=== PATIENT | female | born 1985 ===

== ENCOUNTER 2018-06-15 15:48 | Inpatient (IN) | payer OTHER ==
[2018-06-15] MEDS ORDERED: Sodium Chloride 0.9% 2,000 ML IV STA (16:08)
--- NOTE | 2018-06-15 16:22 | ED PDOC ---
Arrival/HPI - General Chief Complaint: Substance Abuse Time Seen by Provider: 06/15/18 15:49 Historian: Family EM Caveat: Other (limited due to overdose) - Critical Care Critical Care Minutes: 30 minutes - History of Present Illness Narrative History of Present Illness (Text): 06/15/18 16:23 32 year old female with no significant past medical history presents to the emergency department accompanied by her family s/p taking unknown quantity of Benadryl 50mg, earlier today. Patient states she wants to sleep. Family states patient had a fight with her mom at noon today in regards to moving back to the [place], she then texted her mom shortly after saying "sorry." When the family went to the house to check on the patient at 4pm they found her tired and after admitting to taking the pills brought her to the ED. Denies prior suicide attempt. HPI and ROS are limited due to the patients overdose and unresponsive condition. 06/15/18 17:12 Time/Duration: 4-6 hours Symptom Course: Unchanged Activities at Onset: Emotional Upset Context: Home Past Medical History - Provider Review Nursing Documentation Reviewed: Yes - Infectious Disease Hx of Infectious Diseases: None - Reproductive Menopause: No - Cardiac Hx Cardiac Disorders: No - Pulmonary Hx Respiratory Disorders: No - Endocrine/Metabolic Hx Endocrine Disorders: No - Psychiatric Hx Substance Use: No - Anesthesia Hx Anesthesia: No Family/Social History - Physician Review Nursing Documentation Reviewed: Yes Family/Social History: Unknown Family HX Smoking Status: Unknown If Ever Smoked Hx Alcohol Use: Yes Frequency of alcohol use: Socially Hx Substance Use: No Allergies/Home Meds Allergies/Adverse Reactions: Allergies No Known Allergies Allergy (Unverified 06/15/18 16:06) Review of Systems - Review of Systems Systems not reviewed;Unavailable: Altered Mental Status (limitied due to patient's lethargy) Physical Exam - Physical Exam Physical Exam Limitations: Altered Mental Status Vital Signs Reviewed: Yes Temperature: Afebrile Blood Pressure: Hypertensive Pulse: Tachycardic Respiratory Rate: Normal Appearance: Positive for: Well-Appearing Pain Distress: None Mental Status: Positive for: Lethargic Finger Stick Blood Glucose: 70 - Systems Exam Head: Present: Atraumatic, Normocephalic Pupils: Present: Other (midpoint pupils) Extroacular Muscles: Present: EOMI Conjunctiva: Present: Normal Mouth: Present: Moist Mucous Membranes Neck: Present: Normal Range of Motion Respiratory/Chest: Present: Clear to Auscultation, Good Air Exchange. No: Respiratory Distress, Accessory Muscle Use Cardiovascular: Present: Normal S1, S2, Tachycardic. No: Murmurs Abdomen: Present: Scars (well healing surgicial incisions). No: Tenderness, Distention, Peritoneal Signs Breast/Axillary: Present: Other (moist) Back: Present: Normal Inspection Upper Extremity: Present: Normal Inspection. No: Cyanosis, Edema Lower Extremity: Present: Normal Inspection. No: Edema Neurological: Present: Motor Func Grossly Intact (moving all extremities) Skin: Present: Normal Color, Diaphoretic (moist under armpits ). No: Rashes Psychiatric: Present: Lethargic Medical Decision Making ED Course and Treatment: 06/15/18 16:05 Impression: 32 year old female who presents to the emergency department s/p taking unknown quantity of Benadryl 50mg between 12 and 4pm Plan: -- VBG -- Labs -- Chest X-ray -- IV fluids -- Urinalysis -- martinez due to concern for urinary retention -- Reassess and disposition Progress Notes: 06/15/18 16:10 Spoke to poison control who recommends IV hydration, monitoring for hyperthermia, agitation and seizures, with cooling and benzodiazepines as needed for anticholinergic syndrome. 06/15/18 16:45 EKG reviewed, shows: sinus tachycardia at 144BPM, with NC interval of 96, QRS interbal of 92, and QTC interval of 554. 06/15/18 17:14 Martinez shows retaining 900cc urine. Labs reviewed. Heart rate improving. Mental status improving. Patient continues to need medical monitoring before psych evaluation. 06/15/18 17:49 Chest X-ray reviewed, shows: IMPRESSION: No acute findings. 06/15/18 17:[address] Ferrera who is requesting ICU evaluation. 06/15/18 18:20 Poison control recommends 1gm Mag 06/15/18 18:21 ICU accepted patient for alkalization of urine. - Critical Care Critical Care Minutes: 30 minutes Critical Care Time: Excluding Proc Time - Lab Interpretations I have reviewed the lab results: Yes - RAD Interpretation Radiology Orders: 06/15/18 16:07 CHEST PORTABLE [RAD] Stat Traffic Court Magistrate: Radiologist - EKG Interpretation Interpreted by ED Physician: Yes Type: 12 lead EKG - Medication Orders Current Medication Orders: Sodium Chloride (Sodium Chloride 0.9%) 2,000 mls @ 999 mls/hr IV .Q2H1M STA Stop: 06/15/18 18:08 - Scribe Statement The provider has reviewed the documentation as recorded by the Scribe Sanaz Mcwilliams Provider Scribe Attestation: All medical record entries made by the Scribe were at my direction and personally dictated by me. I have reviewed the chart and agree that the record accurately reflects my personal performance of the history, physical exam, medical decision making, and the department course for this patient. I have also personally directed, reviewed, and agree with the discharge instructions and disposition. Disposition/Present on Arrival - Present on Arrival Any Indicators Present on Arrival: No History of DVT/PE: No History of Uncontrolled Diabetes: No Urinary Catheter: No History of Decub. Ulcer: No History Surgical Site Infection Following: None - Disposition Have Diagnosis and Disposition been Completed?: Yes Diagnosis: Drug overdose, intentional, Anticholinergic syndrome Disposition: HOSPITALIZED Disposition Time: 04:19 Patient Plan: Admission, ICU Patient Problems: Current Active Problems Problem Status Onset Drug overdose, intentional Acute Anticholinergic syndrome Acute Condition: CRITICAL
[2018-06-15 16:25] LABS: BASO # 0.02 K/mm3 (0.0-2.0); BASO % 0.3 % (0.0-3.0); EOS # 0.1 (0.0-0.7); EOS % 0.9 % (1.5-5.0); GRAN # 4.66 (1.4-6.5); GRAN % 58.4 % (50.0-68.0); HEMOGLOBIN 13.8 g/dL (12.0-16.0); LYMPH # 2.7 (1.2-3.4); LYMPH % 34.2 % (22.0-35.0); MEAN CELL VOLUME 78.8 fl (80.0-105.0); MEAN CORPUSCULAR HEMOGLOBIN 27.8 pg (25.0-35.0); MEAN CORPUSCULAR HGB CONC 35.3 g/dl (31.0-37.0); MEAN PLATELET VOLUME 10.8 fl (7.0-11.0); MONO # 0.5 (0.1-0.6); MONO % 6.2 % (1.0-6.0); RBC 4.96 10^6/uL (3.5-6.1); RED CELL DISTRIBUTION WIDTH 15.4 % (11.5-14.5)
[2018-06-15 16:33] LABS: ALB/GLOB RATIO 1.3 (1.1-1.8); ALBUMIN 5.1 g/dL (3.0-4.8); ALT/SGPT 35 U/L (7-56); AST/SGOT 40 U/L (14-36); BLOOD UREA NITROGEN 12 mg/dL (7-21); CALCIUM 10.1 mg/dL (8.4-10.5); GFR NON-AFRICAN AMERICAN > 60
[2018-06-15 16:36] LABS: PH,URINE 6.5 (4.7-8.0); URINE APPEARANCE CLEAR (CLEAR); URINE BILIRUBIN NEGATIVE (NEGATIVE); URINE BLOOD NEGATIVE (NEGATIVE); URINE COLOR LIGHT YELLOW (YELLOW); URINE GLUCOSE (UA) NEGATIVE (NEGATIVE); URINE LEUKOCYTE ESTERASE NEGATIVE Leu/uL (NEGATIVE); URINE PROTEIN NEGATIVE mg/dL (<30 mg/dL); URINE UROBILINOGEN 0.2 E.U./dL (<1 E.U./dL)
[2018-06-15 16:41] LABS: HCG,QUALITATIVE URINE NEGATIVE (NEGATIVE)
[2018-06-15 16:52] LABS: ACETAMINOPHEN < 10.0 ug/ml (10.0-20.0); SALICYLATE < 1 mg/dL (2.0-20.0)
[2018-06-15 17:04] LABS: BARBITURATES, UR NEGATIVE (NEGATIVE); BENZODIAZEPINES, UR NEGATIVE (NEGATIVE); OPIATES, UR NEGATIVE (NEGATIVE); PHENCYCLIDINE, UR NEGATIVE (NEGATIVE)
[2018-06-15 17:20] LABS: VENOUS BLOOD GAS BASE EXCESS -4.5 mmol/L (0.0-2.0); VENOUS BLOOD GAS PO2 79 mm/Hg (30-55); VENOUS BLOOD PH 7.36 (7.32-7.43)
--- NOTE | 2018-06-15 17:46 | RAD ---
Date of service: 06/15/2018 HISTORY: overdose COMPARISON: No prior. FINDINGS: LUNGS: The lungs are well inflated and clear. PLEURA: No pleural effusions or pneumothorax. CARDIOVASCULAR: The heart is normal in size. No aortic atherosclerotic calcification present. OSSEOUS STRUCTURES: Within normal limits for the patient's age. VISUALIZED UPPER ABDOMEN: Normal. OTHER FINDINGS: None. IMPRESSION: No acute findings.
[2018-06-15] MEDS ORDERED: Magnesium Sulfate 1 gm in D5W 1 GM/100 ML BAG IVPB ONE (18:20)
--- NOTE | 2018-06-15 18:25 | CP.PCM.CON ---
History of Present Illness - History of Present Illness History of Present Illness: MICU CONSULT NOTE HPI Patient is 32yo female without significant PMhx presents to the ER after taking unknown amount of Benadryl 50mg tablets for "sleep" today, cannot quantify. Patient denies any major complaints, is AAOx3, NAD, providing non descriptive history. Denies SI, HI. No other constitutional symptoms. Pts family found her tired and sluggish. PMhx None PSHx NONE Meds Benadryl Allergies NKDA FHx NC Social Denies smoking, etoh, drug use; unemployed Review of Systems - Review of Systems Review of Systems: as per HPI Past Patient History - Infectious Disease Hx of Infectious Diseases: None - Past Social History Smoking Status: Unknown If Ever Smoked - CARDIAC Hx Cardiac Disorders: No - PULMONARY Hx Respiratory Disorders: No - ENDOCRINE/METABOLIC Hx Endocrine Disorders: No - PSYCHIATRIC Hx Substance Use: No - ANESTHESIA Hx Anesthesia: No Meds Allergies/Adverse Reactions: Allergies Allergy/AdvReac Type Severity Reaction Status Date / Time No Known Allergies Allergy Unverified 06/15/18 16:06 - Medications Medications: Current Medications Potassium Chloride (Potassium Chloride 20 Meq/100 Ml) 20 meq in 100 mls @ 50 mls/hr IVPB Q2H SONAL Stop: 06/15/18 20:44 Last Admin: 06/15/18 17:10 Dose: 50 mls/hr Physical Exam - Constitutional Appears: Non-toxic, No Acute Distress - Head Exam Head Exam: NORMAL INSPECTION - Eye Exam Eye Exam: Normal appearance - ENT Exam ENT Exam: Mucous Membranes Moist - Neck Exam Neck exam: Positive for: Full Rom - Respiratory Exam Respiratory Exam: Clear to Auscultation Bilateral, NORMAL BREATHING PATTERN - Cardiovascular Exam Cardiovascular Exam: REGULAR RHYTHM, +S1, +S2 - GI/Abdominal Exam GI & Abdominal Exam: Normal Bowel Sounds, Soft - Neurological Exam Neurological exam: Alert, Oriented x3 - Psychiatric Exam Psychiatric exam: Depressed - Skin Skin Exam: Normal Color, Warm Results - Vital Signs Recent Vital Signs: Last Vital Signs Temp 97.7 F 06/15/18 17:53 Pulse 104 H 06/15/18 17:53 Resp 20 06/15/18 17:53 BP 171/102 H 06/15/18 17:53 Pulse Ox 99 06/15/18 17:53 - Labs Result Diagrams: 06/15/18 16:05 06/15/18 16:05 Labs: Laboratory Results - last 24 hr 06/15/18 06/15/18 06/15/18 16:05 16:05 16:05 WBC 8.0 RBC 4.96 Hgb 13.8 Hct 39.1 MCV 78.8 L MCH 27.8 MCHC 35.3 RDW 15.4 H Plt Count 265 MPV 10.8 Gran % 58.4 Lymph % (Auto) 34.2 [place] % (Auto) 6.2 H Eos % (Auto) 0.9 L Baso % (Auto) 0.3 Gran # 4.66 Lymph # (Auto) 2.7 [place] # (Auto) 0.5 Eos # (Auto) 0.1 Baso # (Auto) 0.02 pO2 VBG pH VBG pCO2 VBG HCO3 VBG Total CO2 VBG O2 Sat (Calc) VBG Base Excess VBG Potassium Glucose Lactate FiO2 Sodium 141 Potassium 3.4 L Chloride 107 Carbon Dioxide 22 Anion Gap 16 BUN 12 Creatinine 0.7 Est GFR ( Amer) > 60 Est GFR (Non-Af Amer) > 60 Random Glucose 79 Calcium 10.1 Phosphorus 2.2 L Magnesium 2.1 Total Bilirubin 0.5 AST 40 H ALT 35 Alkaline Phosphatase 61 Total Creatine Kinase 70 Total Protein 9.0 H Albumin 5.1 H Globulin 3.8 Albumin/Globulin Ratio 1.3 Venous Blood Potassium Urine Color Urine Appearance Urine pH Ur Specific [place] Urine Protein Urine Glucose (UA) Urine Ketones Urine Blood Urine Nitrate Urine Bilirubin Urine Urobilinogen Ur Leukocyte Esterase Urine HCG, Qual Salicylates < 1 L Urine Opiates Screen Urine Methadone Screen Acetaminophen < 10.0 L Ur Barbiturates Screen Ur Phencyclidine Scrn Ur Amphetamines Screen U Benzodiazepines Scrn U Oth Cocaine Metabols U Cannabinoids Screen Alcohol, Quantitative 06/15/18 06/15/18 06/15/18 16:05 16:29 16:29 WBC RBC Hgb Hct MCV MCH MCHC RDW Plt Count MPV Gran % Lymph % (Auto) [place] % (Auto) Eos % (Auto) Baso % (Auto) Gran # Lymph # (Auto) [place] # (Auto) Eos # (Auto) Baso # (Auto) pO2 VBG pH VBG pCO2 VBG HCO3 VBG Total CO2 VBG O2 Sat (Calc) VBG Base Excess VBG Potassium Glucose Lactate FiO2 Sodium Potassium Chloride Carbon Dioxide Anion Gap BUN Creatinine Est GFR ( Amer) Est GFR (Non-Af Amer) Random Glucose Calcium Phosphorus Magnesium Total Bilirubin AST ALT Alkaline Phosphatase Total Creatine Kinase Total Protein Albumin Globulin Albumin/Globulin Ratio Venous Blood Potassium Urine Color Light yellow Urine Appearance Clear Urine pH 6.5 Ur Specific [place] <= 1.005 Urine Protein Negative Urine Glucose (UA) Negative Urine Ketones Negative Urine Blood Negative Urine Nitrate Negative Urine Bilirubin Negative Urine Urobilinogen 0.2 Ur Leukocyte Esterase Negative Urine HCG, Qual Negative Salicylates Urine Opiates Screen Negative Urine Methadone Screen Negative Acetaminophen Ur Barbiturates Screen Negative Ur Phencyclidine Scrn Negative Ur Amphetamines Screen Negative U Benzodiazepines Scrn Negative U Oth Cocaine Metabols Negative U Cannabinoids Screen Negative Alcohol, Quantitative < 10 06/15/18 17:10 WBC RBC Hgb Hct MCV MCH MCHC RDW Plt Count MPV Gran % Lymph % (Auto) [place] % (Auto) Eos % (Auto) Baso % (Auto) Gran # Lymph # (Auto) [place] # (Auto) Eos # (Auto) Baso # (Auto) pO2 79 H VBG pH 7.36 VBG pCO2 36.0 L VBG HCO3 20.3 L VBG Total CO2 21.4 L VBG O2 Sat (Calc) 97.0 H VBG Base Excess -4.5 L VBG Potassium 3.4 L Glucose 68 Lactate 1.7 FiO2 21.0 Sodium 142.0 Potassium Chloride 112.0 H Carbon Dioxide Anion Gap BUN Creatinine Est GFR ( Amer) Est GFR (Non-Af Amer) Random Glucose Calcium Phosphorus Magnesium Total Bilirubin AST ALT Alkaline Phosphatase Total Creatine Kinase Total Protein Albumin Globulin Albumin/Globulin Ratio Venous Blood Potassium 3.4 L Urine Color Urine Appearance Urine pH Ur Specific [place] Urine Protein Urine Glucose (UA) Urine Ketones Urine Blood Urine Nitrate Urine Bilirubin Urine Urobilinogen Ur Leukocyte Esterase Urine HCG, Qual Salicylates Urine Opiates Screen Urine Methadone Screen Acetaminophen Ur Barbiturates Screen Ur Phencyclidine Scrn Ur Amphetamines Screen U Benzodiazepines Scrn U Oth Cocaine Metabols U Cannabinoids Screen Alcohol, Quantitative - EKG Data EKG shows normal: Sinus rhythm (NSR), [place] (nml), Intervals (QTc Prolonged) - Imaging and Cardiology Chest x-ray Status: Image reviewed by me, Report reviewed by me Assessment & Plan - Assessment and Plan (Free Text) Assessment: 32yo female presents Benadryl overdose Overdose, Benadryl rule out SI, Depression - currently afebrile, BP stable, AAOx3, NAD, - labs imaging, chart reviewed - EKG, NSR, nml axis, Qtc>500 Recommend: - supp o2 as needed - NO ID issues - IVF, would alkalinize the urine, 1/2NS with 75meq NaBicarb - monitor Qtc - repeat EKG - follow up with poison control - ECHO - give 1gram of Mag - replete K - GI ppx - DVT ppx - Obtain psych consult - 1:1 observation - Admit to MICU for monitoring
[2018-06-15] MEDS ORDERED: Pantoprazole 20 mg EC Tab PO ONE (19:02)
--- NOTE | 2018-06-15 19:46 | CARD ---
APPROVED REPORT Date of service: 06/15/2018 EKG Measurement Heart [id number] 96P [id number] <Conclusion> Poor data quality, interpretation may be adversely affected Sinus tachycardia with short [place] Nonspecific ST abnormality Abnormal ECG
--- NOTE | 2018-06-15 20:47 | CP.PCM.HP ---
History of Present Illness - History of Present Illness History of Present Illness: Sai Adkins PGY1 History and Physical for Dr Boston Corrales Pt is a 32 yo female with a PMH of asthma who presents to the ED after taking an unknown quantity of Benadryl 50mg. Pt states this was not a suicide attempt, but that she just wanted to sleep. Pt reportedly had a fight with her mother earlier today about possibly moving back to the [place]. Pt was later found by family when they went to the house to check on the pt around 1600. Pt was found to be tired and was brought to the ED. Pt appears anxious during interview, pt is slow to answer questions, but does answer them appropriately. Pt has no other complaints at this time. A 12 point ROS was obtained and added to the HPI where appropriate. PMH: asthma PSH: laminectomy FH: Non contributory SH: Tobacco denies, Alcohol occasionally, Illicit drug use denies; unemployed Home meds: Benadryl Allergies: Denies Present on Admission - Present on Admission Any Indicators Present on Admission: No Review of Systems - Review of Systems Review of Systems: a 12 point ROS was obtained and added to the HPI where appropriate Past Patient History - Infectious Disease Hx of Infectious Diseases: None - Past Social History Smoking Status: Unknown If Ever Smoked - CARDIAC Hx Cardiac Disorders: No - PULMONARY Hx Respiratory Disorders: No - ENDOCRINE/METABOLIC Hx Endocrine Disorders: No - PSYCHIATRIC Hx Substance Use: No - ANESTHESIA Hx Anesthesia: No Meds Allergies/Adverse Reactions: Allergies Allergy/AdvReac Type Severity Reaction Status Date / Time No Known Allergies Allergy Unverified 06/15/18 16:06 Physical Exam - Head Exam Head Exam: ATRAUMATIC, NORMAL INSPECTION, NORMOCEPHALIC - Eye Exam Eye Exam: EOMI, Nystagmus Additional comments: horizontal nystagmus noted on exam - ENT Exam ENT Exam: Mucous Membranes Moist - Neck Exam Neck exam: Positive for: Full Rom - Respiratory Exam Respiratory Exam: Clear to Auscultation Bilateral, NORMAL BREATHING PATTERN. absent: Accessory Muscle Use, Wheezes - Cardiovascular Exam Cardiovascular Exam: Tachycardia, +S1, +S2. absent: Diastolic murmur, Systolic Murmur - GI/Abdominal Exam GI & Abdominal Exam: Normal Bowel Sounds, Soft. absent: Tenderness - Extremities Exam Extremities exam: Positive for: pedal edema, pedal pulses present. Negative for: calf tenderness, tenderness - Neurological Exam Neurological exam: Alert, CN II-XII Intact, Oriented x3 - Psychiatric Exam Psychiatric exam: Anxious, Normal Affect, Normal Mood - Skin Skin Exam: Dry, Intact, Warm Results - Vital Signs Recent Vital Signs: Last Vital Signs Temp 97.7 F 06/15/18 17:53 Pulse 124 H 06/15/18 19:13 Resp 20 06/15/18 19:13 BP 142/93 H 06/15/18 19:13 Pulse Ox 99 06/15/18 19:13 - Labs Result Diagrams: 06/15/18 16:05 06/15/18 16:05 Labs: Laboratory Results - last 24 hr 06/15/18 06/15/18 06/15/18 16:05 16:05 16:05 WBC 8.0 RBC 4.96 Hgb 13.8 Hct 39.1 MCV 78.8 L MCH 27.8 MCHC 35.3 RDW 15.4 H Plt Count 265 MPV 10.8 Gran % 58.4 Lymph % (Auto) 34.2 [place] % (Auto) 6.2 H Eos % (Auto) 0.9 L Baso % (Auto) 0.3 Gran # 4.66 Lymph # (Auto) 2.7 [place] # (Auto) 0.5 Eos # (Auto) 0.1 Baso # (Auto) 0.02 pO2 VBG pH VBG pCO2 VBG HCO3 VBG Total CO2 VBG O2 Sat (Calc) VBG Base Excess VBG Potassium Glucose Lactate FiO2 Sodium 141 Potassium 3.4 L Chloride 107 Carbon Dioxide 22 Anion Gap 16 BUN 12 Creatinine 0.7 Est GFR ( Amer) > 60 Est GFR (Non-Af Amer) > 60 Random Glucose 79 Calcium 10.1 Phosphorus 2.2 L Magnesium 2.1 Total Bilirubin 0.5 AST 40 H ALT 35 Alkaline Phosphatase 61 Total Creatine Kinase 70 Total Protein 9.0 H Albumin 5.1 H Globulin 3.8 Albumin/Globulin Ratio 1.3 Venous Blood Potassium Urine Color Urine Appearance Urine pH Ur Specific [place] Urine Protein Urine Glucose (UA) Urine Ketones Urine Blood Urine Nitrate Urine Bilirubin Urine Urobilinogen Ur Leukocyte Esterase Urine HCG, Qual Salicylates < 1 L Urine Opiates Screen Urine Methadone Screen Acetaminophen < 10.0 L Ur Barbiturates Screen Ur Phencyclidine Scrn Ur Amphetamines Screen U Benzodiazepines Scrn U Oth Cocaine Metabols U Cannabinoids Screen Alcohol, Quantitative 11/06/18 11/06/18 11/06/18 16:05 16:29 16:29 WBC RBC Hgb Hct MCV MCH MCHC RDW Plt Count MPV Gran % Lymph % (Auto) [place] % (Auto) Eos % (Auto) Baso % (Auto) Gran # Lymph # (Auto) [place] # (Auto) Eos # (Auto) Baso # (Auto) pO2 VBG pH VBG pCO2 VBG HCO3 VBG Total CO2 VBG O2 Sat (Calc) VBG Base Excess VBG Potassium Glucose Lactate FiO2 Sodium Potassium Chloride Carbon Dioxide Anion Gap BUN Creatinine Est GFR ( Amer) Est GFR (Non-Af Amer) Random Glucose Calcium Phosphorus Magnesium Total Bilirubin AST ALT Alkaline Phosphatase Total Creatine Kinase Total Protein Albumin Globulin Albumin/Globulin Ratio Venous Blood Potassium Urine Color Light yellow Urine Appearance Clear Urine pH 6.5 Ur Specific [place] <= 1.005 Urine Protein Negative Urine Glucose (UA) Negative Urine Ketones Negative Urine Blood Negative Urine Nitrate Negative Urine Bilirubin Negative Urine Urobilinogen 0.2 Ur Leukocyte Esterase Negative Urine HCG, Qual Negative Salicylates Urine Opiates Screen Negative Urine Methadone Screen Negative Acetaminophen Ur Barbiturates Screen Negative Ur Phencyclidine Scrn Negative Ur Amphetamines Screen Negative U Benzodiazepines Scrn Negative U Oth Cocaine Metabols Negative U Cannabinoids Screen Negative Alcohol, Quantitative < 10 06/15/18 17:10 WBC RBC Hgb Hct MCV MCH MCHC RDW Plt Count MPV Gran % Lymph % (Auto) [place] % (Auto) Eos % (Auto) Baso % (Auto) Gran # Lymph # (Auto) [place] # (Auto) Eos # (Auto) Baso # (Auto) pO2 79 H VBG pH 7.36 VBG pCO2 36.0 L VBG HCO3 20.3 L VBG Total CO2 21.4 L VBG O2 Sat (Calc) 97.0 H VBG Base Excess -4.5 L VBG Potassium 3.4 L Glucose 68 Lactate 1.7 FiO2 21.0 Sodium 142.0 Potassium Chloride 112.0 H Carbon Dioxide Anion Gap BUN Creatinine Est GFR ( Amer) Est GFR (Non-Af Amer) Random Glucose Calcium Phosphorus Magnesium Total Bilirubin AST ALT Alkaline Phosphatase Total Creatine Kinase Total Protein Albumin Globulin Albumin/Globulin Ratio Venous Blood Potassium 3.4 L Urine Color Urine Appearance Urine pH Ur Specific [place] Urine Protein Urine Glucose (UA) Urine Ketones Urine Blood Urine Nitrate Urine Bilirubin Urine Urobilinogen Ur Leukocyte Esterase Urine HCG, Qual Salicylates Urine Opiates Screen Urine Methadone Screen Acetaminophen Ur Barbiturates Screen Ur Phencyclidine Scrn Ur Amphetamines Screen U Benzodiazepines Scrn U Oth Cocaine Metabols U Cannabinoids Screen Alcohol, Quantitative Assessment & Plan - Assessment and Plan (Free Text) Assessment: Pt is a 32 yo female with a PMH of asthma who presents to the ED after taking an unknown quantity of Benadryl 50mg Plan: Benadryl Overdose - pt tachycardic - EKG shows QTc 554 - pt given sodium bicarb - pt given Mg - continue to monitor pt in the ICU - Toxicology negative - UA negative - CXR shows no acute findings - Psyc consulted - follow up ECHO Hypokalemia - K 3.4 - replete PRN Hypophosphatemia - Phos 2.2 - replete PRN Asthma - no wheezing at this time - will give duonebs if pt requires in the future Ppx - SCD - protonix Pt seen, examined, assessment and plan discussed with Dr Boston Adkins PGY1 - Date & Time Date: 06/15/18 Time: 20:50
[2018-06-15 23:42] VITALS: BMI 27.7
[2018-06-16 07:20] LABS: BASO # 0.02 K/mm3 (0.0-2.0); BASO % 0.2 % (0.0-3.0); EOS # 0.1 (0.0-0.7); EOS % 0.8 % (1.5-5.0); GRAN # 4.89 (1.4-6.5); GRAN % 55.5 % (50.0-68.0); HEMOGLOBIN 13.2 g/dL (12.0-16.0); LYMPH # 3.2 (1.2-3.4); MEAN CELL VOLUME 78.3 fl (80.0-105.0); MEAN CORPUSCULAR HEMOGLOBIN 27.5 pg (25.0-35.0); MEAN CORPUSCULAR HGB CONC 35.1 g/dl (31.0-37.0); MEAN PLATELET VOLUME 10.9 fl (7.0-11.0); MONO # 0.7 (0.1-0.6); MONO % 7.5 % (1.0-6.0); RBC 4.8 10^6/uL (3.5-6.1); RED CELL DISTRIBUTION WIDTH 15.4 % (11.5-14.5); WHITE BLOOD COUNT 8.8 10^3/uL (4.5-11.0)
[2018-06-16 07:31] LABS: ALB/GLOB RATIO 1.3 (1.1-1.8); ALBUMIN 4.4 g/dL (3.0-4.8); ALT/SGPT 36 U/L (7-56); AST/SGOT 29 U/L (14-36); BLOOD UREA NITROGEN 7 mg/dL (7-21); CALCIUM 9.2 mg/dL (8.4-10.5); GFR NON-AFRICAN AMERICAN > 60
--- NOTE | 2018-06-16 10:08 | CARD ---
APPROVED REPORT Date of service: 06/16/2018 EKG Measurement Heart [id number] <Conclusion> Sinus tachycardia Otherwise normal ECG
--- NOTE | 2018-06-16 12:30 | CP.CCUPN ---
<Timur Carpenter - Last Filed: 06/16/18 13:07> CCU Subjective - Physician Review Subjective (Free Text): CRITICAL CARE PROGRESS NOTE FOR DR. NEIDA Carpenter PGY-1 Pt seen and examined at bedside this am. She is present with mother at bedside. Pt reports that she has had insomnia for the past month. She had bought benadryl yesterday to try and help her sleep. She reports she also had an argument with her mother yesterday because her mother wanted to travel to [facility]. She had taken 50mg benadryl initially, followed by another 50mg two times about 20 minutes apart and subsequently 100mg. She had taken a total of 10 25mg tablets (250mg). She was brought in to ED by her mother, reports she hasn't noticed signs of suicidal or homicidal ideations. This am, she is currently at her baseline mental status. She is axo x 3. She denies any suicidal or homicidal ideations. 12 point ROS is negative. CCU Objective - Vital Signs / Intake & Output Intake and Output (Last 8hrs): Intake & Output 06/15/18 06/16/18 06/16/18 22:59 06:59 14:59 Intake Total 1000 Output Total 2500 Balance -1500 Weight 78.018 kg 78.018 kg Intake: IV 1000 Right Forearm 1000 Oral 0 Output: Urine 2500 Urethral ([place]) 2500 Other: # Bowel Movements 0 - Physical Exam Head: Positive for: Atraumatic, Normocephalic Pupils: Positive for: Other Extroacular Muscles: Positive for: EOMI Conjunctiva: Positive for: Normal Mouth: Positive for: Moist Mucous Membranes Neck: Positive for: Normal Range of Motion Respiratory/Chest: Positive for: Clear to Auscultation, Good Air Exchange. Negative for: Respiratory Distress, Accessory Muscle Use Cardiovascular: Positive for: Normal S1, S2, Tachycardic. Negative for: Murmurs Abdomen: Positive for: Scars (well healing surgicial incisions). Negative for: Tenderness, Distention, Peritoneal Signs Breast/Axillary: Positive for: Other (moist) Back: Positive for: Normal Inspection Upper Extremity: Positive for: Normal Inspection. Negative for: Cyanosis, Edema Lower Extremity: Positive for: Normal Inspection. Negative for: Edema Neurological: Positive for: Motor Func Grossly Intact (moving all extremities) Skin: Positive for: Normal Color, Diaphoretic (moist under armpits ). Negative for: Rashes Psychiatric: Positive for: Lethargic - Medications Active Medications: Active Medications Generic Name Dose Route Start Last Admin Trade Name Freq PRN Reason Stop Dose Admin Sodium Bicarbonate 75 meq/ 1,075 mls @ 40 mls/hr 06/16/18 04:45 06/16/18 07:15 Sodium Chloride IV 40 mls/hr .Q24H SONAL Administration - Patient Studies Lab Studies: Lab Studies 06/16/18 06/16/18 06/15/18 Range/Units 05:30 05:30 17:10 WBC 8.8 (4.5-11.0) 10^3/uL RBC 4.80 (3.5-6.1) 10^6/uL Hgb 13.2 (12.0-16.0) g/dL Hct 37.6 (36.0-48.0) % MCV 78.3 L (80.0-105.0) fl MCH 27.5 (25.0-35.0) pg MCHC 35.1 (31.0-37.0) g/dl RDW 15.4 H (11.5-14.5) % Plt Count 250 (120.0-450.0) 10^3/uL MPV 10.9 (7.0-11.0) fl Gran % 55.5 (50.0-68.0) % Lymph % (Auto) 36.0 H (22.0-35.0) % [place] % (Auto) 7.5 H (1.0-6.0) % Eos % (Auto) 0.8 L (1.5-5.0) % Baso % (Auto) 0.2 (0.0-3.0) % Gran # 4.89 (1.4-6.5) Lymph # (Auto) 3.2 (1.2-3.4) [place] # (Auto) 0.7 H (0.1-0.6) Eos # (Auto) 0.1 (0.0-0.7) Baso # (Auto) 0.02 (0.0-2.0) K/mm3 pO2 79 H (30-55) mm/Hg VBG pH 7.36 (7.32-7.43) VBG pCO2 36.0 L (40-60) VBG HCO3 20.3 L (21-28) mmol/l VBG Total CO2 21.4 L (22-28) mmol.L VBG O2 Sat (Calc) 97.0 H (40-65) % VBG Base Excess -4.5 L (0.0-2.0) mmol/L VBG Potassium 3.4 L (3.6-5.2) mmol/L Glucose 68 (65-105) mg/dl Lactate 1.7 (0.7-2.1) mmol/L FiO2 21.0 % Sodium 140 142.0 (132-148) mmol/L Potassium 3.9 (3.6-5.0) mmol/L Chloride 107 112.0 H (98-107) mmol/L Carbon Dioxide 22 (21-33) mmol/L Anion Gap 15 (10-20) BUN 7 (7-21) mg/dL Creatinine 0.6 L (0.7-1.2) mg/dl Est GFR ( Amer) > 60 Est GFR (Non-Af Amer) > 60 POC Glucose (mg/dL) (65-110) mg/dL Random Glucose 77 (70-110) mg/dL Calcium 9.2 (8.4-10.5) mg/dL Phosphorus 3.5 (2.5-4.5) mg/dL Magnesium 2.3 H (1.7-2.2) mg/dL Total Bilirubin 0.6 (0.2-1.3) mg/dL AST 29 (14-36) U/L ALT 36 (7-56) U/L Alkaline Phosphatase 52 (38-126) U/L Total Creatine Kinase (35-230) U/L Total Protein 7.8 (5.8-8.3) g/dL Albumin 4.4 (3.0-4.8) g/dL Globulin 3.3 gm/dL Albumin/Globulin Ratio 1.3 (1.1-1.8) Venous Blood Potassium 3.4 L (3.6-5.2) mmol/L Urine Color (YELLOW) Urine Appearance (CLEAR) Urine pH (4.7-8.0) Ur Specific [place] (1.005-1.035) Urine Protein (<30 mg/dL) mg/dL Urine Glucose (UA) (NEGATIVE) mg/dL Urine Ketones (NEGATIVE) mg/dL Urine Blood (NEGATIVE) Urine Nitrate (NEGATIVE) Urine Bilirubin (NEGATIVE) Urine Urobilinogen (<1 E.U./dL) E.U./dL Ur Leukocyte Esterase (NEGATIVE) Haim/uL Urine HCG, Qual (NEGATIVE) Salicylates (2.0-20.0) mg/dL Urine Opiates Screen (NEGATIVE) Urine Methadone Screen (NEGATIVE) Acetaminophen (10.0-20.0) ug/ml Ur Barbiturates Screen (NEGATIVE) Ur Phencyclidine Scrn (NEGATIVE) Ur Amphetamines Screen (NEGATIVE) U Benzodiazepines Scrn (NEGATIVE) U Oth Cocaine Metabols (NEGATIVE) U Cannabinoids Screen (NEGATIVE) Alcohol, Quantitative (0-10) mg/dL 06/15/18 06/15/18 06/15/18 Range/Units 16:29 16:29 16:08 WBC (4.5-11.0) 10^3/uL RBC (3.5-6.1) 10^6/uL Hgb (12.0-16.0) g/dL Hct (36.0-48.0) % MCV (80.0-105.0) fl MCH (25.0-35.0) pg MCHC (31.0-37.0) g/dl RDW (11.5-14.5) % Plt Count (120.0-450.0) 10^3/uL MPV (7.0-11.0) fl Gran % (50.0-68.0) % Lymph % (Auto) (22.0-35.0) % [place] % (Auto) (1.0-6.0) % Eos % (Auto) (1.5-5.0) % Baso % (Auto) (0.0-3.0) % Gran # (1.4-6.5) Lymph # (Auto) (1.2-3.4) [place] # (Auto) (0.1-0.6) Eos # (Auto) (0.0-0.7) Baso # (Auto) (0.0-2.0) K/mm3 pO2 (30-55) mm/Hg VBG pH (7.32-7.43) VBG pCO2 (40-60) VBG HCO3 (21-28) mmol/l VBG Total CO2 (22-28) mmol.L VBG O2 Sat (Calc) (40-65) % VBG Base Excess (0.0-2.0) mmol/L VBG Potassium (3.6-5.2) mmol/L Glucose (65-105) mg/dl Lactate (0.7-2.1) mmol/L FiO2 % Sodium (132-148) mmol/L Potassium (3.6-5.0) mmol/L Chloride (98-107) mmol/L Carbon Dioxide (21-33) mmol/L Anion Gap (10-20) BUN (7-21) mg/dL Creatinine (0.7-1.2) mg/dl Est GFR ( Amer) Est GFR (Non-Af Amer) POC Glucose (mg/dL) 70 (65-110) mg/dL Random Glucose (70-110) mg/dL Calcium (8.4-10.5) mg/dL Phosphorus (2.5-4.5) mg/dL Magnesium (1.7-2.2) mg/dL Total Bilirubin (0.2-1.3) mg/dL AST (14-36) U/L ALT (7-56) U/L Alkaline Phosphatase (38-126) U/L Total Creatine Kinase (35-230) U/L Total Protein (5.8-8.3) g/dL Albumin (3.0-4.8) g/dL Globulin gm/dL Albumin/Globulin Ratio (1.1-1.8) Venous Blood Potassium (3.6-5.2) mmol/L Urine Color Light yellow (YELLOW) Urine Appearance Clear (CLEAR) Urine pH 6.5 (4.7-8.0) Ur Specific [place] <= 1.005 (1.005-1.035) Urine Protein Negative (<30 mg/dL) mg/dL Urine Glucose (UA) Negative (NEGATIVE) mg/dL Urine Ketones Negative (NEGATIVE) mg/dL Urine Blood Negative (NEGATIVE) Urine Nitrate Negative (NEGATIVE) Urine Bilirubin Negative (NEGATIVE) Urine Urobilinogen 0.2 (<1 E.U./dL) E.U./dL Ur Leukocyte Esterase Negative (NEGATIVE) Haim/uL Urine HCG, Qual Negative (NEGATIVE) Salicylates (2.0-20.0) mg/dL Urine Opiates Screen Negative (NEGATIVE) Urine Methadone Screen Negative (NEGATIVE) Acetaminophen (10.0-20.0) ug/ml Ur Barbiturates Screen Negative (NEGATIVE) Ur Phencyclidine Scrn Negative (NEGATIVE) Ur Amphetamines Screen Negative (NEGATIVE) U Benzodiazepines Scrn Negative (NEGATIVE) U Oth Cocaine Metabols Negative (NEGATIVE) U Cannabinoids Screen Negative (NEGATIVE) Alcohol, Quantitative (0-10) mg/dL 06/15/18 06/15/18 06/15/18 Range/Units 16:05 16:05 16:05 WBC (4.5-11.0) 10^3/uL RBC (3.5-6.1) 10^6/uL Hgb (12.0-16.0) g/dL Hct (36.0-48.0) % MCV (80.0-105.0) fl MCH (25.0-35.0) pg MCHC (31.0-37.0) g/dl RDW (11.5-14.5) % Plt Count (120.0-450.0) 10^3/uL MPV (7.0-11.0) fl Gran % (50.0-68.0) % Lymph % (Auto) (22.0-35.0) % [place] % (Auto) (1.0-6.0) % Eos % (Auto) (1.5-5.0) % Baso % (Auto) (0.0-3.0) % Gran # (1.4-6.5) Lymph # (Auto) (1.2-3.4) [place] # (Auto) (0.1-0.6) Eos # (Auto) (0.0-0.7) Baso # (Auto) (0.0-2.0) K/mm3 pO2 (30-55) mm/Hg VBG pH (7.32-7.43) VBG pCO2 (40-60) VBG HCO3 (21-28) mmol/l VBG Total CO2 (22-28) mmol.L VBG O2 Sat (Calc) (40-65) % VBG Base Excess (0.0-2.0) mmol/L VBG Potassium (3.6-5.2) mmol/L Glucose (65-105) mg/dl Lactate (0.7-2.1) mmol/L FiO2 % Sodium 141 (132-148) mmol/L Potassium 3.4 L (3.6-5.0) mmol/L Chloride 107 (98-107) mmol/L Carbon Dioxide 22 (21-33) mmol/L Anion Gap 16 (10-20) BUN 12 (7-21) mg/dL Creatinine 0.7 (0.7-1.2) mg/dl Est GFR ( Amer) > 60 Est GFR (Non-Af Amer) > 60 POC Glucose (mg/dL) (65-110) mg/dL Random Glucose 79 (70-110) mg/dL Calcium 10.1 (8.4-10.5) mg/dL Phosphorus 2.2 L (2.5-4.5) mg/dL Magnesium 2.1 (1.7-2.2) mg/dL Total Bilirubin 0.5 (0.2-1.3) mg/dL AST 40 H (14-36) U/L ALT 35 (7-56) U/L Alkaline Phosphatase 61 (38-126) U/L Total Creatine Kinase 70 (35-230) U/L Total Protein 9.0 H (5.8-8.3) g/dL Albumin 5.1 H (3.0-4.8) g/dL Globulin 3.8 gm/dL Albumin/Globulin Ratio 1.3 (1.1-1.8) Venous Blood Potassium (3.6-5.2) mmol/L Urine Color (YELLOW) Urine Appearance (CLEAR) Urine pH (4.7-8.0) Ur Specific [place] (1.005-1.035) Urine Protein (<30 mg/dL) mg/dL Urine Glucose (UA) (NEGATIVE) mg/dL Urine Ketones (NEGATIVE) mg/dL Urine Blood (NEGATIVE) Urine Nitrate (NEGATIVE) Urine Bilirubin (NEGATIVE) Urine Urobilinogen (<1 E.U./dL) E.U./dL Ur Leukocyte Esterase (NEGATIVE) Haim/uL Urine HCG, Qual (NEGATIVE) Salicylates < 1 L (2.0-20.0) mg/dL Urine Opiates Screen (NEGATIVE) Urine Methadone Screen (NEGATIVE) Acetaminophen < 10.0 L (10.0-20.0) ug/ml Ur Barbiturates Screen (NEGATIVE) Ur Phencyclidine Scrn (NEGATIVE) Ur Amphetamines Screen (NEGATIVE) U Benzodiazepines Scrn (NEGATIVE) U Oth Cocaine Metabols (NEGATIVE) U Cannabinoids Screen (NEGATIVE) Alcohol, Quantitative < 10 (0-10) mg/dL 06/15/18 Range/Units 16:05 WBC 8.0 (4.5-11.0) 10^3/uL RBC 4.96 (3.5-6.1) 10^6/uL Hgb 13.8 (12.0-16.0) g/dL Hct 39.1 (36.0-48.0) % MCV 78.8 L (80.0-105.0) fl MCH 27.8 (25.0-35.0) pg MCHC 35.3 (31.0-37.0) g/dl RDW 15.4 H (11.5-14.5) % Plt Count 265 (120.0-450.0) 10^3/uL MPV 10.8 (7.0-11.0) fl Gran % 58.4 (50.0-68.0) % Lymph % (Auto) 34.2 (22.0-35.0) % [place] % (Auto) 6.2 H (1.0-6.0) % Eos % (Auto) 0.9 L (1.5-5.0) % Baso % (Auto) 0.3 (0.0-3.0) % Gran # 4.66 (1.4-6.5) Lymph # (Auto) 2.7 (1.2-3.4) [place] # (Auto) 0.5 (0.1-0.6) Eos # (Auto) 0.1 (0.0-0.7) Baso # (Auto) 0.02 (0.0-2.0) K/mm3 pO2 (30-55) mm/Hg VBG pH (7.32-7.43) VBG pCO2 (40-60) VBG HCO3 (21-28) mmol/l VBG Total CO2 (22-28) mmol.L VBG O2 Sat (Calc) (40-65) % VBG Base Excess (0.0-2.0) mmol/L VBG Potassium (3.6-5.2) mmol/L Glucose (65-105) mg/dl Lactate (0.7-2.1) mmol/L FiO2 % Sodium (132-148) mmol/L Potassium (3.6-5.0) mmol/L Chloride (98-107) mmol/L Carbon Dioxide (21-33) mmol/L Anion Gap (10-20) BUN (7-21) mg/dL Creatinine (0.7-1.2) mg/dl Est GFR ( Amer) Est GFR (Non-Af Amer) POC Glucose (mg/dL) (65-110) mg/dL Random Glucose (70-110) mg/dL Calcium (8.4-10.5) mg/dL Phosphorus (2.5-4.5) mg/dL Magnesium (1.7-2.2) mg/dL Total Bilirubin (0.2-1.3) mg/dL AST (14-36) U/L ALT (7-56) U/L Alkaline Phosphatase (38-126) U/L Total Creatine Kinase (35-230) U/L Total Protein (5.8-8.3) g/dL Albumin (3.0-4.8) g/dL Globulin gm/dL Albumin/Globulin Ratio (1.1-1.8) Venous Blood Potassium (3.6-5.2) mmol/L Urine Color (YELLOW) Urine Appearance (CLEAR) Urine pH (4.7-8.0) Ur Specific [place] (1.005-1.035) Urine Protein (<30 mg/dL) mg/dL Urine Glucose (UA) (NEGATIVE) mg/dL Urine Ketones (NEGATIVE) mg/dL Urine Blood (NEGATIVE) Urine Nitrate (NEGATIVE) Urine Bilirubin (NEGATIVE) Urine Urobilinogen (<1 E.U./dL) E.U./dL Ur Leukocyte Esterase (NEGATIVE) Haim/uL Urine HCG, Qual (NEGATIVE) Salicylates (2.0-20.0) mg/dL Urine Opiates Screen (NEGATIVE) Urine Methadone Screen (NEGATIVE) Acetaminophen (10.0-20.0) ug/ml Ur Barbiturates Screen (NEGATIVE) Ur Phencyclidine Scrn (NEGATIVE) Ur Amphetamines Screen (NEGATIVE) U Benzodiazepines Scrn (NEGATIVE) U Oth Cocaine Metabols (NEGATIVE) U Cannabinoids Screen (NEGATIVE) Alcohol, Quantitative (0-10) mg/dL Laboratory Results - last 24 hr 06/15/18 06/15/18 06/15/18 16:05 16:05 16:05 WBC 8.0 RBC 4.96 Hgb 13.8 Hct 39.1 MCV 78.8 L MCH 27.8 MCHC 35.3 RDW 15.4 H Plt Count 265 MPV 10.8 Gran % 58.4 Lymph % (Auto) 34.2 [place] % (Auto) 6.2 H Eos % (Auto) 0.9 L Baso % (Auto) 0.3 Gran # 4.66 Lymph # (Auto) 2.7 [place] # (Auto) 0.5 Eos # (Auto) 0.1 Baso # (Auto) 0.02 pO2 VBG pH VBG pCO2 VBG HCO3 VBG Total CO2 VBG O2 Sat (Calc) VBG Base Excess VBG Potassium Glucose Lactate FiO2 Sodium 141 Potassium 3.4 L Chloride 107 Carbon Dioxide 22 Anion Gap 16 BUN 12 Creatinine 0.7 Est GFR ( Amer) > 60 Est GFR (Non-Af Amer) > 60 POC Glucose (mg/dL) Random Glucose 79 Calcium 10.1 Phosphorus 2.2 L Magnesium 2.1 Total Bilirubin 0.5 AST 40 H ALT 35 Alkaline Phosphatase 61 Total Creatine Kinase 70 Total Protein 9.0 H Albumin 5.1 H Globulin 3.8 Albumin/Globulin Ratio 1.3 Venous Blood Potassium Urine Color Urine Appearance Urine pH Ur Specific [place] Urine Protein Urine Glucose (UA) Urine Ketones Urine Blood Urine Nitrate Urine Bilirubin Urine Urobilinogen Ur Leukocyte Esterase Urine HCG, Qual Salicylates < 1 L Urine Opiates Screen Urine Methadone Screen Acetaminophen < 10.0 L Ur Barbiturates Screen Ur Phencyclidine Scrn Ur Amphetamines Screen U Benzodiazepines Scrn U Oth Cocaine Metabols U Cannabinoids Screen Alcohol, Quantitative 06/15/18 06/15/18 06/15/18 16:05 16:08 16:29 WBC RBC Hgb Hct MCV MCH MCHC RDW Plt Count MPV Gran % Lymph % (Auto) [place] % (Auto) Eos % (Auto) Baso % (Auto) Gran # Lymph # (Auto) [place] # (Auto) Eos # (Auto) Baso # (Auto) pO2 VBG pH VBG pCO2 VBG HCO3 VBG Total CO2 VBG O2 Sat (Calc) VBG Base Excess VBG Potassium Glucose Lactate FiO2 Sodium Potassium Chloride Carbon Dioxide Anion Gap BUN Creatinine Est GFR ( Amer) Est GFR (Non-Af Amer) POC Glucose (mg/dL) 70 Random Glucose Calcium Phosphorus Magnesium Total Bilirubin AST ALT Alkaline Phosphatase Total Creatine Kinase Total Protein Albumin Globulin Albumin/Globulin Ratio Venous Blood Potassium Urine Color Light yellow Urine Appearance Clear Urine pH 6.5 Ur Specific [place] <= 1.005 Urine Protein Negative Urine Glucose (UA) Negative Urine Ketones Negative Urine Blood Negative Urine Nitrate Negative Urine Bilirubin Negative Urine Urobilinogen 0.2 Ur Leukocyte Esterase Negative Urine HCG, Qual Negative Salicylates Urine Opiates Screen Urine Methadone Screen Acetaminophen Ur Barbiturates Screen Ur Phencyclidine Scrn Ur Amphetamines Screen U Benzodiazepines Scrn U Oth Cocaine Metabols U Cannabinoids Screen Alcohol, Quantitative < 10 06/15/18 06/15/18 06/16/18 16:29 17:10 05:30 WBC 8.8 RBC 4.80 Hgb 13.2 Hct 37.6 MCV 78.3 L MCH 27.5 MCHC 35.1 RDW 15.4 H Plt Count 250 MPV 10.9 Gran % 55.5 Lymph % (Auto) 36.0 H [place] % (Auto) 7.5 H Eos % (Auto) 0.8 L Baso % (Auto) 0.2 Gran # 4.89 Lymph # (Auto) 3.2 [place] # (Auto) 0.7 H Eos # (Auto) 0.1 Baso # (Auto) 0.02 pO2 79 H VBG pH 7.36 VBG pCO2 36.0 L VBG HCO3 20.3 L VBG Total CO2 21.4 L VBG O2 Sat (Calc) 97.0 H VBG Base Excess -4.5 L VBG Potassium 3.4 L Glucose 68 Lactate 1.7 FiO2 21.0 Sodium 142.0 Potassium Chloride 112.0 H Carbon Dioxide Anion Gap BUN Creatinine Est GFR ( Amer) Est GFR (Non-Af Amer) POC Glucose (mg/dL) Random Glucose Calcium Phosphorus Magnesium Total Bilirubin AST ALT Alkaline Phosphatase Total Creatine Kinase Total Protein Albumin Globulin Albumin/Globulin Ratio Venous Blood Potassium 3.4 L Urine Color Urine Appearance Urine pH Ur Specific [place] Urine Protein Urine Glucose (UA) Urine Ketones Urine Blood Urine Nitrate Urine Bilirubin Urine Urobilinogen Ur Leukocyte Esterase Urine HCG, Qual Salicylates Urine Opiates Screen Negative Urine Methadone Screen Negative Acetaminophen Ur Barbiturates Screen Negative Ur Phencyclidine Scrn Negative Ur Amphetamines Screen Negative U Benzodiazepines Scrn Negative U Oth Cocaine Metabols Negative U Cannabinoids Screen Negative Alcohol, Quantitative 06/16/18 05:30 WBC RBC Hgb Hct MCV MCH MCHC RDW Plt Count MPV Gran % Lymph % (Auto) [place] % (Auto) Eos % (Auto) Baso % (Auto) Gran # Lymph # (Auto) [place] # (Auto) Eos # (Auto) Baso # (Auto) pO2 VBG pH VBG pCO2 VBG HCO3 VBG Total CO2 VBG O2 Sat (Calc) VBG Base Excess VBG Potassium Glucose Lactate FiO2 Sodium 140 Potassium 3.9 Chloride 107 Carbon Dioxide 22 Anion Gap 15 BUN 7 Creatinine 0.6 L Est GFR ( Amer) > 60 Est GFR (Non-Af Amer) > 60 POC Glucose (mg/dL) Random Glucose 77 Calcium 9.2 Phosphorus 3.5 Magnesium 2.3 H Total Bilirubin 0.6 AST 29 ALT 36 Alkaline Phosphatase 52 Total Creatine Kinase Total Protein 7.8 Albumin 4.4 Globulin 3.3 Albumin/Globulin Ratio 1.3 Venous Blood Potassium Urine Color Urine Appearance Urine pH Ur Specific [place] Urine Protein Urine Glucose (UA) Urine Ketones Urine Blood Urine Nitrate Urine Bilirubin Urine Urobilinogen Ur Leukocyte Esterase Urine HCG, Qual Salicylates Urine Opiates Screen Urine Methadone Screen Acetaminophen Ur Barbiturates Screen Ur Phencyclidine Scrn Ur Amphetamines Screen U Benzodiazepines Scrn U Oth Cocaine Metabols U Cannabinoids Screen Alcohol, Quantitative EKG/Cardiology Studies: Cardiology / EKG Studies 06/15/18 16:02 EKG [ELECTROCARDIOGRAM] Stat Comment: Reason For Exam: SLEEPING PILL OVERDOSE 06/16/18 07:00 EKG [ELECTROCARDIOGRAM] Routine Comment: Reason For Exam: Prolong QTc 06/16/18 15:00 EKG [ELECTROCARDIOGRAM] Routine Comment: Reason For Exam: qtc Fingerstick Blood Sugar Results: 70 Review of Systems - Review of Systems Review of Systems: per HPI Critical Care Progress Note - Nutrition Nutrition: Nutrition Category Date Time Status Regular Diet [DIET] Diets 06/16/18 Breakfast Ordered Assessment/Plan - Assessment and Plan (Free Text) Assessment: 32 y/o F admitted to MICU s/p diphenhydramine overdose with prolonged QTc on EKG. She was treated with magnesium to sodium bicarb to alkalinize urine. EKG obtained this am revealed improved QTc. Plan: Neuro/Psych: AxO x 3 No FND No suicidal/homicidal ideations Normal affect/normal mood Evaluated by psychiatry, signed off Cardiovascular: QTc: 480. Improved from 554 RRR Normotensive Maintain MAP >65 Pulmonary: Lung CTA No SOB OOB as tolerated GI: Soft/nondistended /Renal: Maintain euvolemia Urinalysis ID: Afebrile No leukocytosis DVT/GI PPx: SCD Dispo: Pt has no acute complaints this am. He vitals are stable, she is hemodynamically stable. Labs are wnl. Her QTc improved on repeat EKG. Pt no longer requires ICU care. Pt is stable for transfer to telemetry. Please re- consult if necessary Case seen, examined and discussed with attending physician, Dr. Corrales <Deanna Corrales - Last Filed: 06/16/18 17:56> CCU Objective - Vital Signs / Intake & Output Intake and Output (Last 8hrs): Intake & Output 06/16/18 06/16/18 06/16/18 06:59 14:59 22:59 Intake Total 1000 Output Total 2500 Balance -1500 Weight 78.018 kg Intake: IV 1000 Right Forearm 1000 Oral 0 Output: Urine 2500 Urethral ([place]) 2500 Other: # Bowel Movements 0 - Patient Studies Lab Studies: Lab Studies 06/16/18 06/16/18 06/15/18 Range/Units 05:30 05:30 16:08 WBC 8.8 (4.5-11.0) 10^3/uL RBC 4.80 (3.5-6.1) 10^6/uL Hgb 13.2 (12.0-16.0) g/dL Hct 37.6 (36.0-48.0) % MCV 78.3 L (80.0-105.0) fl MCH 27.5 (25.0-35.0) pg MCHC 35.1 (31.0-37.0) g/dl RDW 15.4 H (11.5-14.5) % Plt Count 250 (120.0-450.0) 10^3/uL MPV 10.9 (7.0-11.0) fl Gran % 55.5 (50.0-68.0) % Lymph % (Auto) 36.0 H (22.0-35.0) % [place] % (Auto) 7.5 H (1.0-6.0) % Eos % (Auto) 0.8 L (1.5-5.0) % Baso % (Auto) 0.2 (0.0-3.0) % Gran # 4.89 (1.4-6.5) Lymph # (Auto) 3.2 (1.2-3.4) [place] # (Auto) 0.7 H (0.1-0.6) Eos # (Auto) 0.1 (0.0-0.7) Baso # (Auto) 0.02 (0.0-2.0) K/mm3 Sodium 140 (132-148) mmol/L Potassium 3.9 (3.6-5.0) mmol/L Chloride 107 (98-107) mmol/L Carbon Dioxide 22 (21-33) mmol/L Anion Gap 15 (10-20) BUN 7 (7-21) mg/dL Creatinine 0.6 L (0.7-1.2) mg/dl Est GFR ( Amer) > 60 Est GFR (Non-Af Amer) > 60 POC Glucose (mg/dL) 70 (65-110) mg/dL Random Glucose 77 (70-110) mg/dL Calcium 9.2 (8.4-10.5) mg/dL Phosphorus 3.5 (2.5-4.5) mg/dL Magnesium 2.3 H (1.7-2.2) mg/dL Total Bilirubin 0.6 (0.2-1.3) mg/dL AST 29 (14-36) U/L ALT 36 (7-56) U/L Alkaline Phosphatase 52 (38-126) U/L Total Protein 7.8 (5.8-8.3) g/dL Albumin 4.4 (3.0-4.8) g/dL Globulin 3.3 gm/dL Albumin/Globulin Ratio 1.3 (1.1-1.8) Laboratory Results - last 24 hr 06/15/18 06/16/18 06/16/18 16:08 05:30 05:30 WBC 8.8 RBC 4.80 Hgb 13.2 Hct 37.6 MCV 78.3 L MCH 27.5 MCHC 35.1 RDW 15.4 H Plt Count 250 MPV 10.9 Gran % 55.5 Lymph % (Auto) 36.0 H [place] % (Auto) 7.5 H Eos % (Auto) 0.8 L Baso % (Auto) 0.2 Gran # 4.89 Lymph # (Auto) 3.2 [place] # (Auto) 0.7 H Eos # (Auto) 0.1 Baso # (Auto) 0.02 Sodium 140 Potassium 3.9 Chloride 107 Carbon Dioxide 22 Anion Gap 15 BUN 7 Creatinine 0.6 L Est GFR ( Amer) > 60 Est GFR (Non-Af Amer) > 60 POC Glucose (mg/dL) 70 Random Glucose 77 Calcium 9.2 Phosphorus 3.5 Magnesium 2.3 H Total Bilirubin 0.6 AST 29 ALT 36 Alkaline Phosphatase 52 Total Protein 7.8 Albumin 4.4 Globulin 3.3 Albumin/Globulin Ratio 1.3 EKG/Cardiology Studies: Cardiology / EKG Studies 06/16/18 07:00 EKG [ELECTROCARDIOGRAM] Routine Comment: Reason For Exam: Prolong QTc 06/16/18 15:00 EKG [ELECTROCARDIOGRAM] Routine Comment: Reason For Exam: qtc Critical Care Progress Note - Nutrition Nutrition: Nutrition Category Date Time Status Regular Diet [DIET] Diets 06/16/18 Breakfast Ordered Addendum Addendum: 06/16/18 17:54 ICU ATTENDING : Patent seen and examined with housestaff. Agree with progress note with following additions/exceptions: 32F admitted with overdose of benadryl QTC has normalized no ekg abnormalities no events on tele psych eval for suicide attempt otherwise MICU level care no longer indicated have kept in touch with poison control as well ok to transfer out of MICU Rest of care as above Deanna Corrales MD Pulmonary, Critical Care and Sleep Medicine
--- NOTE | 2018-06-16 12:36 | CARD ---
APPROVED REPORT Date of service: 06/16/2018 EKG Measurement Heart [id number] <Conclusion> Sinus tachycardia Nonspecific T wave abnormality
[2018-06-16 19:15] VITALS: O2SAT 98
--- NOTE | 2018-06-16 19:34 | CARD ---
APPROVED REPORT Date of service: 06/16/2018 EXAM: Two-dimensional and M-mode echocardiogram with Doppler and color Doppler. INDICATION PROLONGED QTC, LVFX 2D DIMENSIONS Left Atrium (2D)3.5 (1.6-4.0cm)IVSd1.1 (0.7-1.1cm) LVDd3.5 (3.9-5.9cm)PWd1.2 (0.7-1.1cm) LVDs2.5 (2.5-4.0cm)FS (%) 28.1 % LVEF (%)55.4 (>50%) M-Mode DIMENSIONS Aortic Root3.20 (2.2-3.7cm)Aortic Cusp Exc.2.00 (1.5-2.0cm) Aortic Valve AoV Peak Lqddwesw266.0cm/Maile Peak GR.4mmHg Mitral Valve E/A ratio0.0 TDI E/Lateral E'0.0E/Medial E'0.0 Pulmonary Valve PV Peak Zmsbigmz54.4cm/sPV Peak Grad.3mmHg Tricuspid Valve TR Peak [id number] [id number] Peak Gr.12mmHg [id number] LEFT VENTRICLE The left ventricle is normal size. There is normal left ventricular wall thickness. The left ventricular function is normal.EF-55% There is normal LV segmental wall motion. The left ventricular diastolic function is normal. No left ventricle thrombus noted on this study. There is no ventricular septal defect visualized. There is no left ventricular aneurysm. There is no mass noted in the left ventricle. RIGHT VENTRICLE The right ventricle is normal size. There is normal right ventricular wall thickness. The right ventricular systolic function is normal. ATRIA The left atrium size is normal. The right atrium size is normal. The interatrial septum is intact with no evidence for an atrial septal defect. AORTIC VALVE The aortic valve is thickened but opens well. The aortic valve is moderately sclerotic. There is trace aortic regurgitation. There is no aortic valvular stenosis. There is no aortic valvular vegetation. MITRAL VALVE The mitral valve is thickened but opens well. Mitral regurgitation is trace to mild. There is no mitral valve stenosis. There is no evidence of mitral valve prolapse. TRICUSPID VALVE The tricuspid valve leaflets are thickened , but open well. There is trace tricuspid regurgitation.RVSP-22 mmof Hg There is no tricuspid valve stenosis. There is no tricuspid valve prolapse or vegetation. PULMONIC VALVE The pulmonary valve is normal in structure. There is no pulmonic valvular regurgitation. There is no pulmonic valvular stenosis. GREAT VESSELS The aortic root is normal in size. The ascending aorta is normal in size. The pulmonary artery is normal. The IVC is normal in size and collapses >50% with inspiration. PERICARDIAL EFFUSION There is no pleural effusion. There is no pericardial effusion. <Conclusion> Normal Chsamber Size. EF-55% Mitral regurgitation is trace to mild. There is trace aortic regurgitation. Mitral regurgitation is trace to mild. There is trace tricuspid regurgitation.RVSP-22 mmof Hg The IVC is normal in size and collapses >50% with inspiration. There is no pericardial effusion. No Vegetation or thrombus noted.
--- NOTE | 2018-06-16 21:53 | CON ---
DATE: 06/16/2018 HISTORY OF PRESENT ILLNESS: The patient is a 32-year-old female with not known previous psychiatric history. The patient was admitted to ICU status post taking 10 pills of Benadryl. The patient denied that she wanted to kill herself in the emergency room as well as to this fiction writer. The patient was admitted for observation and stabilization. Psych consult was called for evaluation of possible suicidal attempt. The patient was seen and examined today. The patient presented to be sleepy, easily arousable. The patient reported that she had difficulty to fall asleep and to stay asleep. For the past month, she was suffering from insomnia. The patient reported that at the morning time, she purchased Benadryl in order to help herself with the sleep. The patient reported that her mother brought to her attention that she is leaving to [facility]. The patient reported that she was upset, but denied that she wanted to end up her life, denied that she wanted to kill herself and these two events of argument with the mother as well as overdose on medications are not related between each other. The patient reported that she does not feel depressed. Denied that she wanted to kill herself. Denied feeling of hopelessness or helplessness. The patient reported that she has two kids, 9-year-old as well as 5-year-old and the patient reported that she never tried to kill herself before. The patient denied using any illicit drugs. The patient also denied hearing voices, denied seeing things. The patient denied any history of mental illness. PHYSICAL EXAMINATION: VITAL SIGNS: Reviewed, stable. Temperature 97.8, pulse 99, blood pressure 130/79, respiration 16, oxygen saturation is 97. MEDICATIONS: Reviewed. The patient is on sodium bicarbonate. LABORATORY DATA: Labs are reviewed. Chemistries reviewed. Urine reviewed. Toxicology was negative for any substances. The patient allowed this fiction writer to obtain collateral information from the patient's mother who is next to the patient. The patient's mother is [place]uvian speaking and this fiction writer is to utilize medical office secretary for translation. As per mother, the patient was not depressed, never verbalized thoughts of harming herself or others. Denied any acute deviation from baseline. Mother has no concerns about patient's safety. MENTAL STATUS EXAM: The patient appears to be sleepy but easily arousable. Fair eye contact. Mood described, I am okay. Affect was constricted affect. Thought process seems to be coherent and goal directed. Thought content, the patient denied visual, auditory, tactile hallucinations. Denied paranoid ideation. The patient denied thoughts of harming herself or others. Denied intent or plan. Insight and judgment seems to be fair. Impulses are well controlled. This fiction writer educated the patient about dangerousness of taking medications. The patient was advised to see her primary care physician as well as the sleep study. The patient verbalized understanding and willing to do so. IMPRESSION: The patient had accidental overdose on medication, rule-out insomnia. PLAN: The patient denied that she wanted to kill herself. The patient contracted for safety. The patient expressed no suicidal ideation. The patient is not psychotic. Collaterals were obtained from the mother recommended polysomnography as outpatient followup with the primary care physician. The patient denied being depressed. Denied any thoughts of harming herself or others at present moment. The patient not in any imminent danger to self or others. This fiction writer will sign off. Thank you very much for letting me participate in the care of your patient. Tejal Ferrer MD
[2018-06-17 06:21] VITALS: TEMP 98.2
[2018-06-17 07:19] LABS: ALB/GLOB RATIO 1.3 (1.1-1.8); ALBUMIN 4.5 g/dL (3.0-4.8); ALT/SGPT 35 U/L (7-56); AST/SGOT 33 U/L (14-36); BLOOD UREA NITROGEN 12 mg/dL (7-21); CALCIUM 8.8 mg/dL (8.4-10.5); GFR NON-AFRICAN AMERICAN > 60
[2018-06-17 08:36] LABS: TROPONIN I 0.02 ng/mL
--- NOTE | 2018-06-17 09:56 | CARD ---
APPROVED REPORT Date of service: 06/17/2018 EKG Measurement Heart [id number] <Conclusion> Normal sinus rhythm Nonspecific T wave abnormality Prolonged QT Abnormal ECG
[2018-06-17 10:46] LABS: BASO # 0.03 K/mm3 (0.0-2.0); BASO % 0.4 % (0.0-3.0); EOS # 0.3 (0.0-0.7); GRAN # 4.65 (1.4-6.5); GRAN % 56.2 % (50.0-68.0); HEMOGLOBIN 13.7 g/dL (12.0-16.0); LYMPH # 2.9 (1.2-3.4); LYMPH % 34.5 % (22.0-35.0); MEAN CELL VOLUME 79.2 fl (80.0-105.0); MEAN CORPUSCULAR HGB CONC 35.3 g/dl (31.0-37.0); MEAN PLATELET VOLUME 10.9 fl (7.0-11.0); MONO # 0.5 (0.1-0.6); MONO % 5.9 % (1.0-6.0); RBC 4.9 10^6/uL (3.5-6.1); RED CELL DISTRIBUTION WIDTH 15.3 % (11.5-14.5); WHITE BLOOD COUNT 8.3 10^3/uL (4.5-11.0)
[2018-06-17 11:57] VITALS: BP 111/66; PULSE 80; RESP 20
--- NOTE | 2018-06-17 17:57 | CP.PCM.DIS ---
<Pauline Michael - Last Filed: 06/17/18 17:55> Provider - Provider Date of Admission: 06/15/18 17:17 Attending physician: Jess Ferrera DO Consults: Cardio - Dr. Babb Neurology - Dr. Benjamin Time Spent in preparation of Discharge (in minutes): 35 Hospital Course - Lab Results Lab Results: Micro Results 06/15/18 21:05 Naris MRSA Culture (Admit) - Final MRSA NOT DETECTED Most Recent Lab Values WBC 8.3 10^3/uL (4.5-11.0) 06/17/18 10:30 RBC 4.90 10^6/uL (3.5-6.1) 06/17/18 10:30 Hgb 13.7 g/dL (12.0-16.0) 06/17/18 10:30 Hct 38.8 % (36.0-48.0) 06/17/18 10:30 MCV 79.2 fl (80.0-105.0) L 06/17/18 10:30 MCH 28.0 pg (25.0-35.0) 06/17/18 10:30 MCHC 35.3 g/dl (31.0-37.0) 06/17/18 10:30 RDW 15.3 % (11.5-14.5) H 06/17/18 10:30 Plt Count 250 10^3/uL (120.0-450.0) 06/17/18 10:30 MPV 10.9 fl (7.0-11.0) 06/17/18 10:30 Gran % 56.2 % (50.0-68.0) 06/17/18 10:30 Lymph % (Auto) 34.5 % (22.0-35.0) 06/17/18 10:30 [place] % (Auto) 5.9 % (1.0-6.0) 06/17/18 10:30 Eos % (Auto) 3.0 % (1.5-5.0) 06/17/18 10:30 Baso % (Auto) 0.4 % (0.0-3.0) 06/17/18 10:30 Gran # 4.65 (1.4-6.5) 06/17/18 10:30 Lymph # (Auto) 2.9 (1.2-3.4) 06/17/18 10:30 [place] # (Auto) 0.5 (0.1-0.6) 06/17/18 10:30 Eos # (Auto) 0.3 (0.0-0.7) 06/17/18 10:30 Baso # (Auto) 0.03 K/mm3 (0.0-2.0) 06/17/18 10:30 pO2 79 mm/Hg (30-55) H 06/15/18 17:10 VBG pH 7.36 (7.32-7.43) 06/15/18 17:10 VBG pCO2 36.0 (40-60) L 06/15/18 17:10 VBG HCO3 20.3 mmol/l (21-28) L 06/15/18 17:10 VBG Total CO2 21.4 mmol.L (22-28) L 06/15/18 17:10 VBG O2 Sat (Calc) 97.0 % (40-65) H 06/15/18 17:10 VBG Base Excess -4.5 mmol/L (0.0-2.0) L 06/15/18 17:10 VBG Potassium 3.4 mmol/L (3.6-5.2) L 06/15/18 17:10 Sodium 142.0 mmol/L (132-148) 06/15/18 17:10 Chloride 112.0 mmol/L (98-107) H 06/15/18 17:10 Glucose 68 mg/dl (65-105) 06/15/18 17:10 Lactate 1.7 mmol/L (0.7-2.1) 06/15/18 17:10 FiO2 21.0 % 06/15/18 17:10 Sodium 139 mmol/L (132-148) 06/17/18 06:00 Potassium 4.1 mmol/L (3.6-5.0) 06/17/18 06:00 Chloride 105 mmol/L (98-107) 06/17/18 06:00 Carbon Dioxide 21 mmol/L (21-33) 06/17/18 06:00 Anion Gap 17 (10-20) 06/17/18 06:00 BUN 12 mg/dL (7-21) 06/17/18 06:00 Creatinine 0.7 mg/dl (0.7-1.2) 06/17/18 06:00 Est GFR ( Amer) > 60 06/17/18 06:00 Est GFR (Non-Af Amer) > 60 06/17/18 06:00 POC Glucose (mg/dL) 70 mg/dL (65-110) 06/15/18 16:08 Random Glucose 86 mg/dL (70-110) 06/17/18 06:00 Calcium 8.8 mg/dL (8.4-10.5) 06/17/18 06:00 Phosphorus 4.2 mg/dL (2.5-4.5) 06/17/18 06:00 Magnesium 2.2 mg/dL (1.7-2.2) 06/17/18 06:00 Total Bilirubin 0.8 mg/dL (0.2-1.3) 06/17/18 06:00 AST 33 U/L (14-36) 06/17/18 06:00 ALT 35 U/L (7-56) 06/17/18 06:00 Alkaline Phosphatase 41 U/L (38-126) 06/17/18 06:00 Lactate Dehydrogenase 732 U/L (333-699) H 06/17/18 06:30 Total Creatine Kinase 47 U/L (35-230) 06/17/18 06:30 Troponin I 0.02 ng/mL 06/17/18 06:30 Total Protein 7.8 g/dL (5.8-8.3) 06/17/18 06:00 Albumin 4.5 g/dL (3.0-4.8) 06/17/18 06:00 Globulin 3.3 gm/dL 06/17/18 06:00 Albumin/Globulin Ratio 1.3 (1.1-1.8) 06/17/18 06:00 Venous Blood Potassium 3.4 mmol/L (3.6-5.2) L 06/15/18 17:10 Urine Color Light yellow (YELLOW) 06/15/18 16:29 Urine Appearance Clear (CLEAR) 06/15/18 16:29 Urine pH 6.5 (4.7-8.0) 06/15/18 16:29 Ur Specific Spencer <= 1.005 (1.005-1.035) 11/06/18 16:29 Urine Protein Negative mg/dL (<30 mg/dL) 06/15/18 16:29 Urine Glucose (UA) Negative mg/dL (NEGATIVE) 06/15/18 16:29 Urine Ketones Negative mg/dL (NEGATIVE) 06/15/18 16:29 Urine Blood Negative (NEGATIVE) 06/15/18 16:29 Urine Nitrate Negative (NEGATIVE) 06/15/18 16:29 Urine Bilirubin Negative (NEGATIVE) 06/15/18 16:29 Urine Urobilinogen 0.2 E.U./dL (<1 E.U./dL) 06/15/18 16:29 Ur Leukocyte Esterase Negative Haim/uL (NEGATIVE) 06/15/18 16:29 Urine HCG, Qual Negative (NEGATIVE) 06/15/18 16:29 Salicylates < 1 mg/dL (2.0-20.0) L 06/15/18 16:05 Urine Opiates Screen Negative (NEGATIVE) 06/15/18 16:29 Urine Methadone Screen Negative (NEGATIVE) 06/15/18 16:29 Acetaminophen < 10.0 ug/ml (10.0-20.0) L 06/15/18 16:05 Ur Barbiturates Screen Negative (NEGATIVE) 06/15/18 16:29 Ur Phencyclidine Scrn Negative (NEGATIVE) 06/15/18 16:29 Ur Amphetamines Screen Negative (NEGATIVE) 06/15/18 16:29 U Benzodiazepines Scrn Negative (NEGATIVE) 06/15/18 16:29 U Oth Cocaine Metabols Negative (NEGATIVE) 06/15/18 16:29 U Cannabinoids Screen Negative (NEGATIVE) 06/15/18 16:29 Alcohol, Quantitative < 10 mg/dL (0-10) 06/15/18 16:05 - Hospital Course Hospital Course: Upon Admission Ms. Umu Kirkpatrick is a 32 year old female who was brought into [facility] Emergency Room (ED) by family members on 06/15/18 after taking an unspecified amount of Benadryl 50 mg tablets. A family member was the historian. The patient had an argument with her mother. Patient was found excessively tired by a family member and brought to the ED for alter mental status. In the ED, pt mentation slowly improves. Chest X-ray showed no acute findings. Poison control was consulted who recommended IV hydration, monitoring for hyperthermia, agitation and seizures, with cooling,benzodiazepines as needed for anticholinergic syndrome and 1 gm of magnesium. EKG showed sinus tachycardia at 144BPM, with QTC interval prolonged at 554 and pt received mg. Finley was inserted and showed 900 cc retained urine. Patient was admitted to ICU for alter mental status requiring continual heart monitor, serial ekg, urine output measurement, alkalization of the urine and frequent neural check. In ICU, her mentation recovered fully in the icu. Pt explaned that she had insomnia and took benadryl for sleep. Suicidal ideation was suspected. psych was consulted and deemed pt non suicidal and discontinued 1:1. QTC improves to 480s on subsequent EKGs. Echocardiogram showed normal chamber size EF- 55%, no pericardial effusion, vegetation, or thrombus noted. On discharge, VS stable. Gait stable. Patient is to follow up with her primary care physician for a repeat EKG, for this hospitalization, and for her insomnia. Patient should refrain from taking Benadryl. Patient is to follow up with a psychiatry appointment. Discharge Exam - Head Exam Head Exam: ATRAUMATIC, NORMAL INSPECTION, NORMOCEPHALIC - Eye Exam Eye Exam: EOMI Pupil Exam: PERRL - ENT Exam ENT Exam: Mucous Membranes Moist - Neck Exam Neck exam: Normal Inspection - Respiratory Exam Respiratory Exam: Clear to PA & Lateral. absent: Accessory Muscle Use, Wheezes, Respiratory Distress - Cardiovascular Exam Cardiovascular Exam: REGULAR RHYTHM, +S1, +S2 - GI/Abdominal Exam GI & Abdominal Exam: Normal Bowel Sounds, Soft. absent: Firm, Guarding - Extremities Exam Extremities exam: normal inspection, pedal pulses present - Neurological Exam Neurological exam: Alert, CN II-XII Intact, Oriented x3 - Skin Skin Exam: Normal Color, Warm Discharge Plan - Follow Up Plan Condition: CRITICAL Disposition: HOME/ ROUTINE Instructions: Narcotic Overdose Additional Instructions: Discharge Instructions: Please follow up with primary care doctor Dr. Connelly at [facility] on July 08, 2018 at 3 PM. You came to the hospital after benadryl overdose. You will need repeat EKG with your primary care doctor. You can call clinic at this phone number: [phone]. Please follow up with your psychiatrist, Dr. Walls, scheduled for appointment on July 09, 2018 at 10am. Please call the [facility] neighborhood clinic in the hospital to give your information and confirm appointment [phone] We are not giving you any new medications on discharge from the hospital. Please refrain from using Benadryl Please return to the ED for any new or worsening symptoms. <Jess Ferrera - Last Filed: 06/21/18 11:43> Provider - Provider Date of Admission: 06/15/18 17:17 Attending physician: Jess Ferrera DO Hospital Course - Lab Results Lab Results: Micro Results 06/15/18 21:05 Naris MRSA Culture (Admit) - Final MRSA NOT DETECTED Most Recent Lab Values WBC 8.3 10^3/uL (4.5-11.0) 06/17/18 10:30 RBC 4.90 10^6/uL (3.5-6.1) 06/17/18 10:30 Hgb 13.7 g/dL (12.0-16.0) 06/17/18 10:30 Hct 38.8 % (36.0-48.0) 06/17/18 10:30 MCV 79.2 fl (80.0-105.0) L 06/17/18 10:30 MCH 28.0 pg (25.0-35.0) 06/17/18 10:30 MCHC 35.3 g/dl (31.0-37.0) 06/17/18 10:30 RDW 15.3 % (11.5-14.5) H 06/17/18 10:30 Plt Count 250 10^3/uL (120.0-450.0) 06/17/18 10:30 MPV 10.9 fl (7.0-11.0) 06/17/18 10:30 Gran % 56.2 % (50.0-68.0) 06/17/18 10:30 Lymph % (Auto) 34.5 % (22.0-35.0) 06/17/18 10:30 [place] % (Auto) 5.9 % (1.0-6.0) 06/17/18 10:30 Eos % (Auto) 3.0 % (1.5-5.0) 06/17/18 10:30 Baso % (Auto) 0.4 % (0.0-3.0) 06/17/18 10:30 Gran # 4.65 (1.4-6.5) 06/17/18 10:30 Lymph # (Auto) 2.9 (1.2-3.4) 06/17/18 10:30 [place] # (Auto) 0.5 (0.1-0.6) 06/17/18 10:30 Eos # (Auto) 0.3 (0.0-0.7) 06/17/18 10:30 Baso # (Auto) 0.03 K/mm3 (0.0-2.0) 06/17/18 10:30 pO2 79 mm/Hg (30-55) H 06/15/18 17:10 VBG pH 7.36 (7.32-7.43) 06/15/18 17:10 VBG pCO2 36.0 (40-60) L 06/15/18 17:10 VBG HCO3 20.3 mmol/l (21-28) L 06/15/18 17:10 VBG Total CO2 21.4 mmol.L (22-28) L 06/15/18 17:10 VBG O2 Sat (Calc) 97.0 % (40-65) H 06/15/18 17:10 VBG Base Excess -4.5 mmol/L (0.0-2.0) L 06/15/18 17:10 VBG Potassium 3.4 mmol/L (3.6-5.2) L 06/15/18 17:10 Sodium 142.0 mmol/L (132-148) 06/15/18 17:10 Chloride 112.0 mmol/L (98-107) H 06/15/18 17:10 Glucose 68 mg/dl (65-105) 06/15/18 17:10 Lactate 1.7 mmol/L (0.7-2.1) 06/15/18 17:10 FiO2 21.0 % 06/15/18 17:10 Sodium 139 mmol/L (132-148) 06/17/18 06:00 Potassium 4.1 mmol/L (3.6-5.0) 06/17/18 06:00 Chloride 105 mmol/L (98-107) 06/17/18 06:00 Carbon Dioxide 21 mmol/L (21-33) 06/17/18 06:00 Anion Gap 17 (10-20) 06/17/18 06:00 BUN 12 mg/dL (7-21) 06/17/18 06:00 Creatinine 0.7 mg/dl (0.7-1.2) 06/17/18 06:00 Est GFR ( Amer) > 60 06/17/18 06:00 Est GFR (Non-Af Amer) > 60 06/17/18 06:00 POC Glucose (mg/dL) 70 mg/dL (65-110) 06/15/18 16:08 Random Glucose 86 mg/dL (70-110) 06/17/18 06:00 Calcium 8.8 mg/dL (8.4-10.5) 06/17/18 06:00 Phosphorus 4.2 mg/dL (2.5-4.5) 06/17/18 06:00 Magnesium 2.2 mg/dL (1.7-2.2) 06/17/18 06:00 Total Bilirubin 0.8 mg/dL (0.2-1.3) 06/17/18 06:00 AST 33 U/L (14-36) 06/17/18 06:00 ALT 35 U/L (7-56) 06/17/18 06:00 Alkaline Phosphatase 41 U/L (38-126) 06/17/18 06:00 Lactate Dehydrogenase 732 U/L (333-699) H 06/17/18 06:30 Total Creatine Kinase 47 U/L (35-230) 06/17/18 06:30 Troponin I 0.02 ng/mL 06/17/18 06:30 Total Protein 7.8 g/dL (5.8-8.3) 06/17/18 06:00 Albumin 4.5 g/dL (3.0-4.8) 06/17/18 06:00 Globulin 3.3 gm/dL 06/17/18 06:00 Albumin/Globulin Ratio 1.3 (1.1-1.8) 06/17/18 06:00 Venous Blood Potassium 3.4 mmol/L (3.6-5.2) L 06/15/18 17:10 Urine Color Light yellow (YELLOW) 06/15/18 16:29 Urine Appearance Clear (CLEAR) 06/15/18 16:29 Urine pH 6.5 (4.7-8.0) 06/15/18 16:29 Ur Specific Spencer <= 1.005 (1.005-1.035) 06/15/18 16:29 Urine Protein Negative mg/dL (<30 mg/dL) 06/15/18 16:29 Urine Glucose (UA) Negative mg/dL (NEGATIVE) 06/15/18 16:29 Urine Ketones Negative mg/dL (NEGATIVE) 06/15/18 16:29 Urine Blood Negative (NEGATIVE) 06/15/18 16:29 Urine Nitrate Negative (NEGATIVE) 06/15/18 16:29 Urine Bilirubin Negative (NEGATIVE) 06/15/18 16:29 Urine Urobilinogen 0.2 E.U./dL (<1 E.U./dL) 06/15/18 16:29 Ur Leukocyte Esterase Negative Haim/uL (NEGATIVE) 06/15/18 16:29 Urine HCG, Qual Negative (NEGATIVE) 06/15/18 16:29 Salicylates < 1 mg/dL (2.0-20.0) L 06/15/18 16:05 Urine Opiates Screen Negative (NEGATIVE) 06/15/18 16:29 Urine Methadone Screen Negative (NEGATIVE) 06/15/18 16:29 Acetaminophen < 10.0 ug/ml (10.0-20.0) L 06/15/18 16:05 Ur Barbiturates Screen Negative (NEGATIVE) 06/15/18 16:29 Ur Phencyclidine Scrn Negative (NEGATIVE) 06/15/18 16:29 Ur Amphetamines Screen Negative (NEGATIVE) 06/15/18 16:29 U Benzodiazepines Scrn Negative (NEGATIVE) 06/15/18 16:29 U Oth Cocaine Metabols Negative (NEGATIVE) 06/15/18 16:29 U Cannabinoids Screen Negative (NEGATIVE) 06/15/18 16:29 Alcohol, Quantitative < 10 mg/dL (0-10) 06/15/18 16:05 Attending/Attestation - Attestation I have personally seen and examined this patient.: Yes I have fully participated in the care of the patient.: Yes I have reviewed all pertinent clinical information, including history, physical exam and plan: Yes Notes (Text): Patient seen and examined by me with resident at 10:10AM on 06/17/18. Case including discharge plan discussed with resident. Agree with above with following additions/corrections. Patient is 32 year old female with past medical history significant for asthma that presented to the emergency room after taking unknown quantity of Benadryl. Please see H&P for full details. Patient was admitted Benadryl overdose, hypokalemia, hypophosphatemia, and history of mild intermittent asthma, no acute exacerbation. Patient was admitted to ICU. Poison control was called and instructions followed. Patient was initially tachycardic. Patient had prolonged Qtc on EKG. Patient was given sodium bicarb. Patient was given magnesium. QTc improved. EKGs were monitored Troponins were within normal limits. Tachycardia improved. Chest xray per radiologist showed not acute findings. 2d echo per office system analyst showed normal chamber size, EF 55%, mitral regurgitation is trace to mild, trace aortic regur gitation, no pericardial effusion, no vegetation or thrombus seen. Patient was seen by psychiatrist and this was deemed not a suicidal attempt by psychiatry. Patient was found to have hypokalemia which resolved with repletion. Patient was feeling much better. Patient was cleared for discharge by psychiatry. Patient was discharged home. On day of discharge, patient stated she was feeling much better. No chest pain or shortness of breath. No nausea, vomiting, or abdominal pain. No headaches or dizziness. No lightheadedness. No fevers or chills. No dysuria. No diarrhea or constipation. Patient ambulating well. Tolerating diet well. No suicidal or homicidal ideations. Physical exam: General: Awake and alert lying in bed in no acute distress HEENT: Normocephalic, atraumatic. Extraocular muscles intact, pupils equal and reactive, no scleral icterus. Oropharynx is pink and moist. Neck is supple. Cardiovascular: Regular rhythm. Normal S1 and S2. No murmurs, rubs, or gallops appreciated Pulmonary: Normal respiratory effort. No rhonchi, rales, or wheezing appreciated. Gastrointestinal: Soft, nondistended. Nontender. Positive bowel sounds all 4 quadrants. No guarding. Musculoskeletal: Moves all extremities. No calf tenderness. No edema appreciated. No CVA tenderness. Central nervous system: AAO x3, CN 2-12 grossly intact Dermatologic: Skin warm and dry. Please see chart for full details. Follow up instructions: Patient to follow up with primary care doctor Dr. Connelly at [facility] on July 08, 2018 at 3 PM. Patient will need repeat EKG with primary care doctor. Patient to follow up with your psychiatrist, Dr. Walls, scheduled for appointment on July 09, 2018 at 10am. All instructions explained to in detail. Patient both unders tands and agrees to all instructions. Written instructions also given. Time spent in discharging the patient including chart review, medication reconciliation, discussion with the patient, biomedical equipment specialist, consultants, and nursing staff was 40 minutes
== END 2018-06-17 13:17 | disposition home or self-care (01) | DRG 812 ==
LOC: ED 15:48 → ERH 17:17 → ICU 20:11 → 2RSO 06-16 18:52
PROVIDERS: ADMIT Hospitalist; ATTEND Hospitalist
DX: T45.0X1A Poisoning by antiallergic and antiemetic drugs, accidental (unintentional), initial encounter (principal); E83.39 Other disorders of phosphorus metabolism; E87.6 Hypokalemia; J45.909 Unspecified asthma, uncomplicated; G47.00 Insomnia, unspecified; Z62.820 Parent-biological child conflict